=== PATIENT | female | born 1935 | race Caucasian/White ===

== ENCOUNTER 2017-12-02 06:43 | Inpatient (IN) | payer MEDICARE, OTHER, SELFPAY ==
[2017-11-18 12:49] VITALS: BMI 34.9
[2017-12-02] VITALS (15 sets, daily range): BP systolic 93–170; BP diastolic 45–87; PULSE 63–98; RESP 10–21; TEMP 35.9–36.6; O2SAT 95–99; BMI 33.9
--- NOTE | 2017-12-02 | DI.RAD.S_ITS ---
PROCEDURE: XR PELVIS 1-2V INDICATIONS: POST OPERATIVE TOTAL RIGHT HIP TECHNIQUE: 1 view of the lower pelvis acquired. COMPARISON: [facility], CR, XR PELVIS WITH BILATERAL LATERAL HIPS, 07/23/2017, 10:35. FINDINGS: Interval postsurgical changes of the right hip are compatible with a right hip arthroplasty. The metallic prosthetic components appear to be appropriately seated. Expected postoperative changes within the overlying soft tissues are present. No displaced fractures or dislocations are evident. Postoperative changes related to a left hip arthroplasty are noted. There are moderate degenerative changes present involving the pubis symphysis. There is a soft tissue air and edema are seen overlying the right hip. No radiopaque foreign bodies are evident. A Guerrero catheter is incidentally noted. IMPRESSION: Expected postoperative changes related to a recent right hip arthroplasty. Dictated by: Saul Dodd M.D. on 12/02/2017 at 9:02 Approved by: Saul Dodd M.D. on 12/02/2017 at 9:03
[2017-12-02] MEDS: LACTATED RINGERS 1,000 ML 42 ML IV (07:25)
[2017-12-02] MEDS: ACETAMINOPHEN 325 MG TABLET 975 MG PO (07:25)
[2017-12-02] MEDS: CELECOXIB 200 MG CAPSULE PO (07:26)
--- NOTE | 2017-12-02 07:51 | PM.PREOP ---
Pre-operative Note Interval Note Pre-op Check: History & Physical Reviewed by Physician and Changes
[2017-12-02] MEDS: CEFAZOLIN 2 GM/100 ML FROZ.PIGGY IV ×2 (07:52→16:49)
[2017-12-02] MEDS: TRANEXAMIC ACID 1,000 MG VIAL 1000 MG IV ×2 (08:25→08:58)
--- NOTE | 2017-12-02 08:36 | SUR.OPER ---
Left Lateral on padded OR bed. Gel axillary roll. Arms secured on padded armboard with pillow supporting top arm. Padded hip positioner braces x4 - anterior and posterior chest and pelvis. Additional gel pad used anterior pelvis. Gel pad under bottom leg from knee to foot and secured with tape over sheet.
[2017-12-02] MEDS: BUPIVACAINE LIPOSOME 266 MG/20 ML VIAL INJ (08:55)
--- NOTE | 2017-12-02 09:35 | PM.OP.1 ---
Operative Date/Time/Diagnoses - Date of procedure: 12/02/17 Time of procedure: 09:36 Pre-op diagnosis: Right hip degenerative joint disease Post-op diagnosis: same Procedure & Clinicians Procedure: Right total hip arthroplasty (CPT code 76228 with administrative assistant receptionist) Same procedure as scheduled: Yes Indications: Patient is an 82-year-old female with severe right hip DJD. The patient has pain with activities and at rest, limited ambulation and activity tolerance, difficulties with ADLs, and failure of conservative treatment. We have discussed the nature of condition, treatment options, risks and benefits, and patient elects to proceed with total hip arthroplasty and gives informed consent. Surgeon: Abner Caicedo Online Community Manager: Trino Loo Anesthesia Type: General and Spinal Operative Notes Closure Type: primary Specimen(s): none sent Implants & Drains: Acetabulum: Pérez and Nephew R3 acetabular component size 50 mm Femoral component: Pérez and Nephew Synergy stem size 13 with standard offset Femoral head: 32 mm + 0 cobalt chrome Applied: catheter Estimated Blood Loss (mL): 100 Blood products transfused: none Procedure in detail: After satisfaction induction of anesthetic, and administration of IV antibiotics, the patient was positioned in the lateral decubitus position with all bony prominences well padded and pelvic position secured using a hip superintendent sanitation positioning device. Right hip and lower extremity prepped and draped in the usual sterile fashion, 1st dose of intravenous tranexamic acid was administered, then a longitudinal incision was created centered over the greater trochanter and carried sharply through the skin and subcutaneous tissues down to the fascia roxanna which was divided longitudinally and retracted with a Charnley retractor. External rotators visualize, cut, tagged, and retracted posteriorly, then the capsule was cut in a T-type fashion with the corners tagged and retracted. Hip was dislocated and femoral neck cut made according to preoperative templating. Acetabular retractors then placed, and the acetabular labrum and osteophytes were excised. The acetabulum was then sequentially reamed to 49 mm with an excellent circumferential ream and fit with the trial. The trial component was removed and a permanent size 50 mm Pérez and Nephew R3 acetabular component was selected, positioned, and impacted with satisfactory position and fixation achieved. Permanent liner was then inserted with the elevated lip directed posteriorly. Soft tissue then removed off the lateral femoral neck in the lateral neck was entered using a box osteotome. T-handled reamers placed down the canal followed by sequential broaching to 13 with the final broach left in place for trial reduction which demonstrated excellent leg length, range of motion, and stability characteristics with a 32 mm +0 trial ball. The trial and broach were removed, and a permanent size 13 Pérez and Nephew Synergy stem was selected and inserted with excellent position and fixation achieved. Another trial reduction yielded the above characteristics so the trial ball was exchanged for a permanent 32 mm +0 cobalt chrome ball. The hip was irrigated and reduced and excellent leg length range of motion and stability characteristics were achieved and maintained. Periarticular tissues were infiltrated with Exparel. The hip was copiously irrigated, and the capsule repaired with #2 Ethibond, and the piriformis was repaired back to the greater trochanter with the same. Fascia roxanna closed with interrupted #1 Ethibond sutures, and the subcutaneous tissues were closed in 2 layers of 0 Vicryl and 2 0 Vicryl. Skin was closed with [place] and sterile dressings applied. Second dose of tranexamic acid was administered intravenously, and the anesthetic was terminated. Complications: none Condition: stable Disposition: PACU Plan for aftercare: Patient will be admitted to the acute care [facility], and anticipate discharge on postop day 1-2 with follow-up in office in 10-14 days. Outpatient physical therapy will be arranged and patient will continue to observe posterior hip precautions. Patient will continue use of postoperative Lovenox for 10 days postop.
[2017-12-02] MEDS: fentaNYL 100 MCG/2 ML INJ 50 MCG IV ×2 (09:55→10:00)
[2017-12-02] MEDS: HYDROCODONE/ACET 5/325 TABLET 1 TAB PO ×2 (11:23→15:20)
[2017-12-02] MEDS: LACTATED RINGERS 1,000 ML 100 ML IV ×2 (11:24→21:19)
[2017-12-02] MEDS: ONDANSETRON 4 MG/2 ML INJ IV (12:15)
[2017-12-02] MEDS: hydrOXYzine pamoate 25 MG CAPSULE PO (12:21)
--- NOTE | 2017-12-02 15:00 | PT.IIE ---
Current Diagnoses Unilateral primary osteoarthritis, right hip (12/02/17) Surgery Performed Operation Date: 12/02/17 07:45 Actual Procedures p Total Hip Arthroplasty(Right) - Abner Caicedo MD Surgical History (Last Reviewed 12/02/17 @ 09:02 by Danielle Narayan, ALON) History of arthroplasty of left hip (Acute) History of delivery (Acute) History of phacoemulsification of cataract of right eye with intraocular lens implantation (Acute) Hx of tonsillectomy (Acute) Hx of vein stripping (Acute) Medical History (Last Updated 11/18/17 @ 13:14 by Marina Colon RN) Arthritis (Acute) Chronic low back pain (Acute) Frequent diarrhea (Acute) H/O: hysterectomy (Acute) HTN (hypertension) (Acute) Heartburn (Acute) Hyperlipidemia (Acute) Hypothyroidism (Acute) Macular degeneration of left eye (Acute) Osteoarthritis (Acute) Physical Therapy Inpatient Evaluation/Re-Eval Medical Review Prior Functional Status Medical History Reviewed Yes Diet/Fluid Consistency Regular Communication no known deficits Mobility and Gait ind without AD Activities of Daily Living and IADL's likes to stay home most of the time, does go to [employer] 2x/wk, limits outings due to incontinence. When pt does go out she doesn't eat or drink anything until she's home. Prior Functional Level (Other details) denies falls Social History Household Members none Living Arrangements House Number of Floors (Floors) One Floor Number of Stairs To Enter/Railing? 0STE Home Environment Standard Height Toilet Tub/Shower Home Equipment Front Wheel Walker Straight Cane Junior Paralegal Grab Bars In Shower Physical Therapy Current Condition Current Condition Evaluation Date 12/02/17 Treatment Diagnosis R post EL Onset Date 12/02/17 Precautions Posterior Hip Precautions No Hip Flexion > 90 degrees No Hip Internal Rotation No Hip Adduction Weight Bearing Status Weight Bearing Status Weight Bear as Tolerated Subjective Physical Therapy Visit Type Type Initial Evaluation Visit Start Time 13:01 Visit Stop Time 14:24 Total Visit Minutes 83 Physical Therapy Visit Comments Patient Comments Pt reports doing well, getting cramping in the R calf when at rest but more so with movement. Patient/Caregiver Goals go home, pt adamant that she doens't want to go to rehab. Therapy Pain Assessment Pain When Pain Assessed During Mobility Pain Present Pain Present Pain Reported Location Right Hip Intensity 6 Scale Used Numeric (1 - 10) Description Aching Cramping Tender Throbbing With Movement Pain Behaviors Facial Grimacing Guarding Wincing Pain Management Techniques Apply Cold Modification of Treatment Re-positioning Timing of Activity with Medications PT-Bed Mobility Assessment Supine to Sit Supine to Sit Moderate Assistance 1 Person Assistance Head of Bed Elevated Scooting Scooting to Edge of Bed Moderate Assistance Scooting Up and Down in Bed Dependent PT-Transfer Assessment Sit to and From Stand Sit to and from Stand Contact Guard Assistance 1 Person Assistance Use of Upper Extremities Equipment Transfer Assistive Device Gait Belt Front Wheeled Walker Transfers Transfer Destination Chair Transfer Technique Stand Step Pivot Transfer Ability Level of Assist Contact Guard Assistance 1 Person Assistance Use of Upper Extremities Comments Mobility Comments Pt w/ short stature and needing to slide really close to the edge of the bed to get toes to touch the floor. Pt needed help at both hips to get all the way there and cues to avoid leaning too far forward. Gait Assessment Gait Gait Assistance Required: Contact Guard Assist 1 Person Assist Distance (Feet) (feet) 10 Able to Maintain Weight Bearing Status Yes During Gait Assistive Devices Assistive Device Gait Belt Front Wheeled Walker Gait Deviations General Gait Pattern Antalgic Decreased Stride Length Step-to Gait Factors Limiting Gait Function Factors Limiting Gait Function Decreased Activity Tolerance Decreased Strength Pain Comments Gait Comments Pt seems to have genu valgus which she reports never noticing before. R foot somewhat pigeon-toed inward, but the R hip/knee seem in neutral rotational alignment. Stair Climbing Assessment Comments Stair Climbing Comments not tested yet PT-Balance Assessment Sitting Balance and Reactions Static Sitting Balance Ability Good Dynamic Sitting Balance Ability Fair Standing Balance and Reactions Static Standing Balance Ability Good Dynamic Standing Balance Ability Fair Device Used FWW Orientation Orientation/Cognition Level of Alertness Alert Orientation Name Age Birthday Month Date Year Day of Week Place Situation Language Function Ability No Deficits Noted Safety Awareness Understands Safety Issues Memory Description No Deficits Noted Gross Range of Motion Upper Extremity ROM Assessment Within Functional Limits Lower Extremity ROM Assessment Within Functional Limits Impairments as allowed by hip precautions Strength Upper Extremity Strength Assessment Within Functional Limits Comments Strength Comments not formally tested but RLE functional strength is such that pt can stand up and walk. Coordination Assessment Gross Coordination Gross Coordination WNL Physical Therapy Treatment Exercises Exercises Ankle Pumps Gluteal Sets Quad Sets Heel Slides Supine Hip Abduction Education Education Provided Precautions Weight Bearing Status Post-Op Packet Safety PT Summary Assessment and Plan Potential Rehabilitation Potential Excellent Status of Condition at Evaluation Stable Summary Impairments Pain Strength Bed Mobility Transfers Gait Activity Tolerance Progress Towards Goals Progressing Toward Goals Assessment Summary POD#0 R post EL. Pt has full voluntary control of the RLE and is able to complete post- op exercises with minimal assist. Pt did get cramping in the R calf when trying to perform quad sets. Pt currently requiring min<>mod A for functional mobility which is below pt's reported functional baseline. Pt does have potential for further functional improvement and will benefit from ongoing skilled acute PT to optimize independence with mobility. It 's anticipated that pt will be safe to discharge directly home with 24/7 assist from her daughter. Goals Bed Mobility Goal Standby Assistance Transfer Goal Standby Assistance Front Wheeled Walker Gait Goal Standby Assistance Front Wheel Walker Gait Distance 50 Days to Meet Goals 3 Frequency of Treatment Frequency Of Treatment Twice a Day Treatment Plan Physical Therapy Treatment Plan Bed Mobility Training Transfer Training Gait Training Therapeutic Exercise Balance Retraining Post Op Education Discharge Planning Other Recommendations and Next Treatment set up family training closer Focus to dc, progress gait and bed mobility Recommendations To Nursing Amount of Assist Needed 1 Person Assist Discharge Recommendations PT Discharge Recommendations Home with 24/7 Assist Home Health
[2017-12-02] MEDS: diphenhydrAMINE 25 MG TABLET 50 MG PO (21:18)
[2017-12-02] MEDS: DOCUSATE 100 MG CAPSULE PO (21:19)
[2017-12-02] MEDS: IBUPROFEN 400 MG TABLET PO (21:19)
[2017-12-03] VITALS (7 sets, daily range): BP systolic 106–132; BP diastolic 48–64; PULSE 60–78; RESP 16–18; TEMP 36.4–36.8; O2SAT 93–98
--- NOTE | 2017-12-03 | DI.RAD.S_ITS ---
PROCEDURE: XR HIP W PEL IF DONE RT 2V INDICATIONS: Internal rotation of right leg with complaints of leg pain TECHNIQUE: AP pelvis and lateral view of the right hip acquired. COMPARISON: [facility], , XR PELVIS 1-2V, 12/02/2017, 9:38. FINDINGS: Postoperative changes are again evident related to a right hip arthroplasty. The metallic prosthetic components appear to be properly seated with a periprostatic fracture. However, the entire femoral stem is not included on the frog-leg view. Expected postoperative changes within the soft tissues overlying the right gluteal/oximal thigh region are evident with areas of soft tissue air and edema. No radiopaque foreign bodies are evident. Postoperative changes are again noted related to a left hip arthroplasty. There are moderate to severe degenerative changes present involving the lumbosacral spine. IMPRESSION: Expected postoperative changes related to a right hip arthroplasty. Dictated by: Saul Dodd M.D. on 12/03/2017 at 14:57 Approved by: Saul Dodd M.D. on 12/03/2017 at 15:00
[2017-12-03] MEDS: CEFAZOLIN 2 GM/100 ML FROZ.PIGGY IV (00:33)
[2017-12-03] MEDS: HYDROCODONE/ACET 5/325 TABLET 1 TAB PO ×3 (00:36→10:45)
[2017-12-03 05:57] LABS: Hematocrit 32.3 % (36-46)
[2017-12-03] MEDS: LEVOTHYROXINE 50 MCG TABLET PO (06:10)
[2017-12-03] MEDS: AMLODIPINE 5 MG TABLET PO (10:44)
[2017-12-03] MEDS: DOCUSATE 100 MG CAPSULE PO ×2 (10:44→21:21)
[2017-12-03] MEDS: hydrOXYzine pamoate 25 MG CAPSULE PO (10:44)
[2017-12-03] MEDS: ENOXAPARIN 40 MG/0.4 ML SYRINGE SUBCUT (10:45)
[2017-12-03] MEDS: OXYBUTYNIN 5 MG TABLET PO (10:45)
--- NOTE | 2017-12-03 11:42 | CM.DANOTE ---
DCP: Case received, EMR reviewed and met with patient and family members, daughter. Introduced self and role. DCP template completed with info currently available. Pt is an 82 year old female who admitted yesterday am to care of the hospitalist team. PCP: Dr. Caitlyn Herrera. Payer: confirmed: Medicare/[facility]. Patient's admitting diagnosis: right total hip arthroplasty. Patient has gone through this process before with left hip. Patient is planning to go home after hospital stay. Will continue to work with physical therapy. P: check in tomorrow morning with the oncoming hospitalist team to discuss progress, and follow to assist with discharge needs that may arise. lakeisha Cochran, ALON/correctional case manager
[2017-12-03] MEDS: OXYCODONE/ACETAMINOPHEN 5/325 TABLET 1 TAB PO (14:56)
--- NOTE | 2017-12-03 15:17 | PC.NURSE ---
day shift pt states pain in right hip. medicated with 1 norco. pt states that did not help her pain so on next medication, switched pt to percocet. awaiting reassessment. appears that right knee is internally rotated in bed and while standing. PT aware and checking hip as well. Notified PA who will assess pt. alford in place. ice applied to hip to help with pain control as well. hourly rounding provided, call light within reach.
--- NOTE | 2017-12-03 15:38 | PT.IPTN ---
Current Diagnoses Unilateral primary osteoarthritis, right hip (12/02/17) Surgery Performed Operation Date: 12/02/17 07:45 Actual Procedures p Total Hip Arthroplasty(Right) - Abner Caicedo MD Physical Therapy Treatment Note Subjective Physical Therapy Visit Type Type Patient Refusal Notes Pt visiting with family and about to have lunch with them, would like to wait about an hour and half for PT session.
--- NOTE | 2017-12-03 15:49 | PM.PNPO.1 ---
Subjective Date Patient Seen: 12/03/17 Time Patient Seen: 13:49 Interval history: POD #1 status post right total hip arthroplasty with Dr. Caicedo. Her pain is well controlled. She has been up ambulating with physical therapy she has noticed that her knee and foot internally rotate. This was not happening prior to surgery. She has no knee pain. No falls. She has a Guerrero catheter in place. Exam Vital Signs (past 8 hours): - 12/03/17 08:48 12/03/17 11:24 Temperature 98 F 98.2 F Pulse Rate 60 77 Respiratory Rate 18 16 Blood Pressure 106/48 L 120/64 Pulse Oximetry 93 98 Oxygen Delivery Method Room Air Oxygen Flow Rate 0 Narrative Exam Narrative: Patient is sitting in bedside chair in no acute distress. No instability of right knee with varus and valgus stress. Negative anterior-posterior drawer. Nontender to palpation throughout. Full quad strength. Full active range of motion of knee. Right hip has some mild internal rotation. Her knees are valgus bilaterally. No signs of hip dislocation or concerns on exam. Objective Labs Result Diagrams: 12/03/17 05:15 Labs: Laboratory Results - last 24 hr 12/03/17 05:15 Hgb 11.0 L Hct 32.3 L Hip x-rays: AP pelvis and right hip demonstrate hardware in proper alignment. No signs of dislocation or fracture. Assessment & Plan Post-op (1) S/P total hip arthroplasty: Current Visit: Yes Status: Acute Postoperative Procedures Operation Date: 12/02/17 07:45 Actual Procedures Side Surgeon p Total Hip Arthroplasty Right Abner Caicedo MD POD #1 status post right total hip arthroplasty with Dr. Caicedo. Patient's hip x-rays look very good. No signs of dislocation or issues. It is normal after surgery to have some internal rotation with changes of the muscles postoperatively. She should continue mobilizing with physical therapy. Continue current pain medication. SAMIA Guerrero now that she is more mobile. Discharge plan home in next 1-2 days. Time Spent With Patient less than 15 minutes Quality VTE Deep Vein Thrombosis/Pulmonary Embolism Present on Admission: No
--- NOTE | 2017-12-03 15:49 | PT.IPTN ---
Current Diagnoses Unilateral primary osteoarthritis, right hip (12/02/17) Surgery Performed Operation Date: 12/02/17 07:45 Actual Procedures p Total Hip Arthroplasty(Right) - Abner Caicedo MD Physical Therapy Treatment Note Physical Therapy Current Condition Current Condition Evaluation Date 12/02/17 Treatment Diagnosis R post EL Onset Date 12/02/17 Precautions Posterior Hip Precautions No Hip Flexion > 90 degrees No Hip Internal Rotation No Hip Adduction Weight Bearing Status Weight Bearing Status Weight Bear as Tolerated Subjective Physical Therapy Visit Type Type Treatment Note Visit Start Time 13:30 Visit Stop Time 14:30 Total Visit Minutes 60 Physical Therapy Visit Comments Patient Comments Pt reports doing well, very agreeable to participate in therapy at this time. Therapy Pain Assessment Pain When Pain Assessed During Mobility Pain Present Pain Present Pain Reported Location Right Hip Intensity 6 Scale Used Numeric (1 - 10) Description Aching Cramping Tender Throbbing With Movement Pain Behaviors Facial Grimacing Guarding Wincing Pain Management Techniques Apply Cold Modification of Treatment Re-positioning Timing of Activity with Medications PT-Bed Mobility Assessment Supine to Sit Supine to Sit Moderate Assistance 1 Person Assistance Head of Bed Elevated Scooting Scooting to Edge of Bed Moderate Assistance PT-Transfer Assessment Sit to and From Stand Sit to and from Stand Contact Guard Assistance 1 Person Assistance Use of Upper Extremities Equipment Transfer Assistive Device Gait Belt Front Wheeled Walker Transfers Transfer Destination Chair Transfer Technique Stand Step Pivot Transfer Ability Level of Assist Contact Guard Assistance 1 Person Assistance Use of Upper Extremities Comments Mobility Comments Pt able to move the RLE easier in bed for bed mobility, but still needing assist getting all the way to the edge of the bed by helping scoot each hip forward several times. Gait Assessment Gait Gait Assistance Required: Standby Assistance Contact Guard Assist Distance (Feet) (feet) 75 Able to Maintain Weight Bearing Status Yes During Gait Assistive Devices Assistive Device Gait Belt Front Wheeled Walker Gait Deviations General Gait Pattern Antalgic Decreased Stride Length Step-to Gait Factors Limiting Gait Function Factors Limiting Gait Function Decreased Activity Tolerance Decreased Strength Pain Comments Gait Comments Pt definitely seems to have more internal rotation in the R hip this session in bed and in standing. Pt remain stable while walking with not abnormal pain. Orientation Orientation/Cognition Level of Alertness Alert Orientation Name Age Birthday Month Date Year Day of Week Place Situation Language Function Ability No Deficits Noted Safety Awareness Understands Safety Issues Memory Description No Deficits Noted Gross Range of Motion Upper Extremity ROM Assessment Within Functional Limits Lower Extremity ROM Assessment Within Functional Limits Impairments as allowed by hip precautions Strength Upper Extremity Strength Assessment Within Functional Limits Comments Strength Comments not formally tested but RLE functional strength is such that pt can stand up and walk. Coordination Assessment Gross Coordination Gross Coordination WNL Physical Therapy Treatment Exercises Exercises Ankle Pumps Gluteal Sets Quad Sets Heel Slides Supine Hip Abduction Education Education Provided Precautions Weight Bearing Status Post-Op Packet Safety PT Summary Assessment and Plan Potential Rehabilitation Potential Excellent Status of Condition at Evaluation Evolving Summary Impairments Pain Strength Bed Mobility Transfers Gait Activity Tolerance Progress Towards Goals Progressing Toward Goals Assessment Summary Pt's R hip seems to have more internal rotation today. Pt found in bed in IR, this television script writer only able to passively bring the hip to neutral (no ER). There was no increase in pain with this. Pt reports that her leg has been this way even before the surgery. Pt able to walk further this session, but the leg remains internally rotated. It was recommended to the RN that the patient not walk again until ortho PA or MD have assessed her again. RN agrees. PA has since seen the pt and is ordering an xray. Goals Bed Mobility Goal Standby Assistance Transfer Goal Standby Assistance Front Wheeled Walker Gait Goal Standby Assistance Front Wheel Walker Gait Distance 50 Days to Meet Goals 3 Frequency of Treatment Frequency Of Treatment Twice a Day Treatment Plan Physical Therapy Treatment Plan Bed Mobility Training Transfer Training Gait Training Therapeutic Exercise Balance Retraining Post Op Education Discharge Planning Other Recommendations and Next Treatment set up family training closer Focus to dc, progress gait and bed mobility Recommendations To Nursing Amount of Assist Needed 1 Person Assist Discharge Recommendations PT Discharge Recommendations Home with / Assist Home Health
--- NOTE | 2017-12-03 15:54 | P.PN_ITS ---
Subjective Date Patient Seen: 12/03/17 Time Patient Seen: 13:49 Interval history: POD #1 status post right total hip arthroplasty with Dr. Caicedo. Her pain is well controlled. She has been up ambulating with physical therapy she has noticed that her knee and foot internally rotate. This was not happening prior to surgery. She has no knee pain. No falls. She has a Guerrero catheter in place. Exam Vital Signs (past 8 hours): - 12/03/17 08:48 12/03/17 11:24 Temperature 98 F 98.2 F Pulse Rate 60 77 Respiratory Rate 18 16 Blood Pressure 106/48 L 120/64 Pulse Oximetry 93 98 Oxygen Delivery Method Room Air Oxygen Flow Rate 0 Narrative Exam Narrative: Patient is sitting in bedside chair in no acute distress. No instability of right knee with varus and valgus stress. Negative anterior- posterior drawer. Nontender to palpation throughout. Full quad strength. Full active range of motion of knee. Right hip has some mild internal rotation. Her knees are valgus bilaterally. No signs of hip dislocation or concerns on exam. Objective Labs Result Diagrams: 12/03/17 05:15 Labs: Laboratory Results - last 24 hr 12/03/17 05:15 Hgb 11.0 L Hct 32.3 L Hip x-rays: AP pelvis and right hip demonstrate hardware in proper alignment. No signs of dislocation or fracture. Assessment & Plan Post-op (1) S/P total hip arthroplasty: Current Visit: Yes Status: Acute Postoperative Procedures Operation Date: 12/02/17 07:45 Actual Procedures Side Surgeon p Total Hip Arthroplasty Right Abner Caicedo MD POD #1 status post right total hip arthroplasty with Dr. Caicedo. Patient's hip x -rays look very good. No signs of dislocation or issues. It is normal after surgery to have some internal rotation with changes of the muscles postoperatively. She should continue mobilizing with physical therapy. Continue current pain medication. SAMIA Guerrero now that she is more mobile. Discharge plan home in next 1-2 days. Time Spent With Patient less than 15 minutes Quality VTE Deep Vein Thrombosis/Pulmonary Embolism Present on Admission: No
--- NOTE | 2017-12-03 19:02 | PC.NURSE ---
Addendum entered by Savannah Hansen R.N. 12/03/17 22:15: Pt ambulated in hallway w/assist. Denies discomfort. Dsg CDI on surgical right hip. Call light w/in reach, bed alarm on for pt safety. Continue w/plan of care. Original Note: Pt had x-ray done to assess right knee. Denies any discomfort at this time. Ambulated in hallway with staff and family. HL RFA intact/patent. Guerrero cath patent clear yellow urine. Call light w/in reach.
[2017-12-03] MEDS: diphenhydrAMINE 25 MG TABLET 50 MG PO (21:20)
[2017-12-03] MEDS: IBUPROFEN 400 MG TABLET PO (21:21)
[2017-12-04] MEDS: LEVOTHYROXINE 50 MCG TABLET PO (05:59)
[2017-12-04] MEDS: OXYCODONE/ACETAMINOPHEN 5/325 TABLET 1 TAB PO ×3 (06:02→14:57)
[2017-12-04] MEDS: hydrOXYzine pamoate 25 MG CAPSULE PO (06:02)
[2017-12-04 06:20] VITALS: BP 146/64; PULSE 79; RESP 16; TEMP 36.7; O2SAT 99
[2017-12-04 08:00] VITALS: BP 113/61; PULSE 66; RESP 16; TEMP 36.6; O2SAT 96
[2017-12-04] MEDS: OXYBUTYNIN 5 MG TABLET PO (09:05)
[2017-12-04] MEDS: DOCUSATE 100 MG CAPSULE PO ×2 (09:05→20:10)
[2017-12-04] MEDS: ENOXAPARIN 40 MG/0.4 ML SYRINGE SUBCUT (09:05)
[2017-12-04] MEDS: AMLODIPINE 5 MG TABLET PO (09:05)
--- NOTE | 2017-12-04 09:19 | PM.DS.1 ---
History of Present Illness Date Patient Seen: 12/04/17 Time Patient Seen: 09:19 Chief complaint: [place] [id number] Narrative: Patient's pain is [id number]. Denies fever or chills. No nausea vomiting. Patient has been able to use the restroom. She is ambulating short distances out in the rod[place]. Patient's daughter is home to sister. Patient would like to be discharged home today. Discharge Providers Date of admission: 12/02/17 06:43 Primary care physician: ZARA Srinivasan Consults: 12/02/17 10:46 Consult to Discharge Planning Routine Comment: Consult to Physical Therapy Evaluate & Treat Comment: Physician Instructions: post op EL protocol Discharge provider: Trino Loo PA-C Summary Discharge Diagnosis: Status post right total hip arthroplasty Hospital Course: Patient is an 82-year-old female with severe right hip DJD. The patient has pain with activities and at rest, limited ambulation and activity tolerance, difficulties with ADLs, and failure of conservative treatment. We have discussed the nature of condition, treatment options, risks and benefits, and patient elects to proceed with total hip arthroplasty and gives informed consent. Surgeon: Abner Caicedo Applications Administrator: Trino Loo Anesthesia Type: General and Spinal Patient underwent right total hip arthroplasty. Patient back in her room recovering well and is in stable condition. Status at Discharge Functional status at discharge: uses cane/walker Overall status at discharge: patient is progressing back to baseline Time Spent with Patient Less than 30 minutes Exam Vital Signs (past 8 hours): - 12/04/17 06:20 Temperature 98.0 F Pulse Rate 79 Respiratory Rate 16 Blood Pressure 146/64 H Pulse Oximetry 99 Oxygen Delivery Method Room Air Oxygen Flow Rate 0 Narrative Exam Narrative: Patient resting comfortably in bed in no apparent distress. Right hip dressing is clean, dry and intact. Motor functions intact distal right lower extremity. Sensation grossly intact to light touch right lower extremity. Objective Labs Result Diagrams: 12/03/17 05:15 Discharge Plan Discharge Plan Patient Disposition: Home, Self-Care Discharge comment: DC home today Discharge Med Rec/Prescriptions Prescriptions: New enoxaparin [Lovenox] 40 mg/0.4 mL Syringe 40 mg Sub-Q DAILY 7 Days Qty: 0.4 RF: 0 Continue ibuprofen-diphenhydramine cit [Advil PM] 200-38 mg Tablet 2 cap PO BEDTIME Qty: 0 RF: 0 amlodipine 5 mg Tablet 5 mg PO DAILY RF: 0 levothyroxine 50 mcg Capsule 50 mcg PO DAILY RF: 0 oxybutynin chloride 5 mg Tablet 5 mg PO QAM RF: 0 Follow up/Referrals: Caitlyn Way ARNP [Primary Care Provider] - Abner Caicedo MD [Physician] - (Follow up 5-7 days) Provider Discharge Instructions Diet: Diet as Tolerated Activity: Weightbearing as tolerated. Posterior hip precautions Cold/Heat Therapy: Apply ice as needed Other treatments: Patient has prescription for oxycodone at home to be taken as directed. Patient will also take her Advil as directed. Wound Care Report to your healthcare provider any signs of infection, such as:: chills, fever, increased pain and unusual drainage Dressing: Keep dressing clean and dry Discharge Data Primary Care Provider: Caitlyn Way Attending Provider: Abner Caicedo Admit Date/Time: 12/02/17 06:43 Quality VTE Deep Vein Thrombosis/Pulmonary Embolism Present on Admission: No
--- NOTE | 2017-12-04 09:30 | PT.IPTN ---
Current Diagnoses Unilateral primary osteoarthritis, right hip (12/02/17) Presence of unspecified artificial hip joint (12/02/17) Surgery Performed Operation Date: 12/02/17 07:45 Actual Procedures p Total Hip Arthroplasty(Right) - Abner Caicedo MD Physical Therapy Treatment Note M2 PT-IP Current Condition Start: 12/02/17 12:46 Freq: NEEDED Status: Active Protocol: Document 12/02/17 14:24 RS (Rec: 12/02/17 15:00 RS [id number]) Physical Therapy Current Condition Current Condition Evaluation Date 12/02/17 Treatment Diagnosis R post EL Onset Date 12/02/17 Precautions Posterior Hip Precautions No Hip Flexion > 90 degrees No Hip Internal Rotation No Hip Adduction Weight Bearing Status Weight Bearing Status Weight Bear as Tolerated M3 PT-IP Subjective Start: 12/02/17 12:46 Freq: NEEDED Status: Active Protocol: Document 12/04/17 09:30 GGD (Rec: 12/04/17 12:10 GGD [id number]) Subjective Physical Therapy Visit Type Type Treatment Note Visit Start Time 09:30 Visit Stop Time 10:05 Total Visit Minutes 35 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 Therapy Pain Assessment Pain When Pain Assessed During Mobility Pain Present Pain Present Pain Reported Location Right Hip Intensity 5 M4 PT-IP Mobility and Gait Start: 12/02/17 12:46 Freq: NEEDED Status: Active Protocol: Document 12/04/17 09:30 GGD (Rec: 12/04/17 12:10 GGD [id number]) PT-Bed Mobility Assessment Supine to Sit Supine to Sit Contact Guard Assistance Minimal Assistance Scooting Scooting to Edge of Bed Contact Guard Assistance PT-Transfer Assessment Sit to and From Stand Sit to and from Stand Contact Guard Assistance Use of Upper Extremities Equipment Transfer Assistive Device Gait Belt Front Wheeled Walker Comments Mobility Comments Pt need mod cues for mobility for hip precautions. She need assistance with LE to move pillows. Gait Assessment Gait Gait Assistance Required: Contact Guard Assist Distance (Feet) (feet) 130 Assistive Devices Assistive Device Gait Belt Front Wheeled Walker Gait Deviations General Gait Pattern Antalgic Decreased Stride Length Step-to Gait Factors Limiting Gait Function Factors Limiting Gait Function Decreased Activity Tolerance Decreased Strength Pain M5 PT-IP Objective Assessments Start: 12/02/17 12:46 Freq: NEEDED Status: Active Protocol: Document 12/02/17 14:24 RS (Rec: 12/02/17 15:00 RS [id number]) Orientation Orientation/Cognition Level of Alertness Alert Orientation Name Age Birthday Month Date Year Day of Week Place Situation Language Function Ability No Deficits Noted Safety Awareness Understands Safety Issues Memory Description No Deficits Noted Gross Range of Motion Upper Extremity ROM Assessment Within Functional Limits Lower Extremity ROM Assessment Within Functional Limits Impairments as allowed by hip precautions Strength Upper Extremity Strength Assessment Within Functional Limits Comments Strength Comments not formally tested but RLE functional strength is such that pt can stand up and walk. Coordination Assessment Gross Coordination Gross Coordination WNL M6 PT-IP Treatment Start: 12/02/17 12:46 Freq: NEEDED Status: Active Protocol: Document 12/04/17 09:30 GGD (Rec: 12/04/17 12:10 GGD [id number]) Physical Therapy Treatment Exercises Exercises Ankle Pumps Gluteal Sets Quad Sets Heel Slides Supine Hip Abduction Education Education Provided Precautions Safety M7 PT-IP Assessment and Plan Start: 12/02/17 12:46 Freq: NEEDED Status: Active Protocol: Document 12/04/17 09:30 GGD (Rec: 12/04/17 12:10 GGD [id number]) PT Summary Assessment and Plan Summary Assessment Summary Pt need cues for safe mobility with cues for hip precautions . She will be at home alone, with daughter able to help at times. Daughter lives 2 mins away. She improving, but still needs assist and cues for safety. Frequency of Treatment Frequency Of Treatment Twice a Day Treatment Plan Other Recommendations and Next Treatment progress gait and bed mobility Focus Discharge Recommendations PT Discharge Recommendations Home with Assistance Outpatient PT
--- NOTE | 2017-12-04 10:21 | CM.DPC ---
DCP: continued: case received, EMR reviewed. Discussed case in interdisc team rounds: outcome: obtain OT order (done). Stopped in to see pt after noting a d/c to home order. Pt is found up in chair, daughter at bedside. Both confirm the plan for home at d/c but state that neither feel she is ready to d/c today (post op day 2 for EL). Daughter reports a man came in very early before I was here and told my mother she had to go home today. She requested another day of treatment as she did not yet feel prepared for home by herself but noted that he disagreed. ALON Jasso is updated and will follow accordingly. P: home when stable for same, family support and orthopedic followup. OT will see pt today.
[2017-12-04 12:00] VITALS: BP 121/88; PULSE 78; RESP 16; TEMP 36.6; O2SAT 95
--- NOTE | 2017-12-04 13:15 | PT.IPTN ---
Current Diagnoses Unilateral primary osteoarthritis, right hip (12/02/17) Presence of unspecified artificial hip joint (12/02/17) Surgery Performed Operation Date: 12/02/17 07:45 Actual Procedures p Total Hip Arthroplasty(Right) - Abner Caicedo MD Physical Therapy Treatment Note M2 PT-IP Current Condition Start: 12/02/17 12:46 Freq: NEEDED Status: Active Protocol: Document 12/02/17 14:24 RS (Rec: 12/02/17 15:00 RS [id number]) Physical Therapy Current Condition Current Condition Evaluation Date 12/02/17 Treatment Diagnosis R post EL Onset Date 12/02/17 Precautions Posterior Hip Precautions No Hip Flexion > 90 degrees No Hip Internal Rotation No Hip Adduction Weight Bearing Status Weight Bearing Status Weight Bear as Tolerated M3 PT-IP Subjective Start: 12/02/17 12:46 Freq: NEEDED Status: Active Protocol: Document 12/04/17 13:15 GGD (Rec: 12/04/17 15:36 GGD [id number]) Subjective Physical Therapy Visit Type Type Treatment Note Visit Start Time 13:15 Visit Stop Time 13:45 Total Visit Minutes 30 Number of GOLF COURSE LABORER Visits 2 Physical Therapy Visit Comments Patient Comments Pt state she want's to walk. Therapy Pain Assessment Pain When Pain Assessed During Mobility Pain Present Pain Present Pain Reported M4 PT-IP Mobility and Gait Start: 12/02/17 12:46 Freq: NEEDED Status: Active Protocol: Document 12/04/17 13:15 GGD (Rec: 12/04/17 15:36 GGD [id number]) PT-Bed Mobility Assessment Supine to Sit Supine to Sit Contact Guard Assistance Minimal Assistance Sit to Supine Sit to Supine Contact Guard Assistance Minimal Assistance Scooting Scooting to Edge of Bed Contact Guard Assistance PT-Transfer Assessment Sit to and From Stand Sit to and from Stand Contact Guard Assistance Use of Upper Extremities Equipment Transfer Assistive Device Gait Belt Front Wheeled Walker Transfers Transfer Destination Bed Comments Mobility Comments Pt need cues and assist for bed mobility and hip precautions. Gait Assessment Gait Gait Assistance Required: Contact Guard Assist Distance (Feet) (feet) 130 Assistive Devices Assistive Device Gait Belt Front Wheeled Walker Gait Deviations General Gait Pattern Antalgic Decreased Stride Length Step-to Gait Factors Limiting Gait Function Factors Limiting Gait Function Decreased Activity Tolerance Decreased Strength Pain M5 PT-IP Objective Assessments Start: 12/02/17 12:46 Freq: NEEDED Status: Active Protocol: Document 12/02/17 14:24 RS (Rec: 12/02/17 15:00 RS [id number]) Orientation Orientation/Cognition Level of Alertness Alert Orientation Name Age Birthday Month Date Year Day of Week Place Situation Language Function Ability No Deficits Noted Safety Awareness Understands Safety Issues Memory Description No Deficits Noted Gross Range of Motion Upper Extremity ROM Assessment Within Functional Limits Lower Extremity ROM Assessment Within Functional Limits Impairments as allowed by hip precautions Strength Upper Extremity Strength Assessment Within Functional Limits Comments Strength Comments not formally tested but RLE functional strength is such that pt can stand up and walk. Coordination Assessment Gross Coordination Gross Coordination WNL M6 PT-IP Treatment Start: 12/02/17 12:46 Freq: NEEDED Status: Active Protocol: Document 12/04/17 13:15 GGD (Rec: 12/04/17 15:36 GGD [id number]) Physical Therapy Treatment Exercises Exercises Ankle Pumps Gluteal Sets Quad Sets Supine Hip Abduction Education Education Provided Precautions M7 PT-IP Assessment and Plan Start: 12/02/17 12:46 Freq: NEEDED Status: Active Protocol: Document 12/04/17 13:15 GGD (Rec: 12/04/17 15:36 GGD [id number]) PT Summary Assessment and Plan Summary Assessment Summary Pt needs assist and cues for safe bed mobility with hip precautions. She had good tolerance and pain control with gait. Frequency of Treatment Frequency Of Treatment Twice a Day Treatment Plan Other Recommendations and Next Treatment progress gait and bed mobility Focus Recommendations To Nursing Amount of Assist Needed 1 Person Assist Discharge Recommendations PT Discharge Recommendations Home with Assistance Outpatient PT
[2017-12-04 15:49] VITALS: BP 117/50; PULSE 73; RESP 16; TEMP 36.6; O2SAT 94
--- NOTE | 2017-12-04 15:55 | PC.NURSE ---
1400 patient states she does not feel urge to urinate yet. She has not drank very much water today, water refilled and encouraged to increase fluids. Bladder scan shows 210cc at this point. Brief in place for history of incontinence. continue to monitor for void.
--- NOTE | 2017-12-04 17:49 | OT.IP.EVAL ---
Current Diagnoses Unilateral primary osteoarthritis, right hip (12/02/17) Presence of unspecified artificial hip joint (12/02/17) Surgery Performed Operation Date: 12/02/17 07:45 Actual Procedures p Total Hip Arthroplasty(Right) - Abner Caicedo MD Past Medical History (Last Updated 11/18/17 @ 13:14 by Marina Colon RN) Arthritis (Acute) Chronic low back pain (Acute) Frequent diarrhea (Acute) H/O: hysterectomy (Acute) HTN (hypertension) (Acute) Heartburn (Acute) Hyperlipidemia (Acute) Hypothyroidism (Acute) Macular degeneration of left eye (Acute) Osteoarthritis (Acute) Surgical History (Last Reviewed 12/02/17 @ 09:02 by Danielle Narayan RN) History of arthroplasty of left hip (Acute) History of delivery (Acute) History of phacoemulsification of cataract of right eye with intraocular lens implantation (Acute) Hx of tonsillectomy (Acute) Hx of vein stripping (Acute) Occupational Therapy Inpatient Evaluation/Re-Eval M1 PT/OT-IP Prior Functional Status Start: 12/02/17 12:46 Freq: NEEDED Status: Active Protocol: Document 12/02/17 14:24 RS (Rec: 12/02/17 15:00 RS [id number]) Medical Review Prior Functional Status Medical History Reviewed Yes Diet/Fluid Consistency Regular Communication no known deficits Mobility and Gait ind without AD Activities of Daily Living and IADL's likes to stay home most of the time, does go to [employer] and [employer] 2x/wk, limits outings due to incontinence. When pt does go out she doesn't eat or drink anything until she's home. Prior Functional Level (Other details) denies falls Social History Household Members none Living Arrangements House Number of Floors (Floors) One Floor Number of Stairs To Enter/Railing? 0STE Home Environment Standard Height Toilet Tub/Shower Home Equipment Front Wheel Walker Straight Cane Packaging Mechanic Grab Bars In Shower M1 PT/OT-IP Prior Functional Status Start: 12/04/17 17:28 Freq: NEEDED Status: Active Protocol: Document 12/04/17 13:55 CCC (Rec: 12/04/17 17:49 CCC [id number]) Medical Review Prior Functional Status Medical History Reviewed Yes Diet/Fluid Consistency Regular Communication no known deficits Mobility and Gait ind without AD Activities of Daily Living and IADL's likes to stay home most of the time, does go to [employer] and [employer] 2x/wk, limits outings due to incontinence. When pt does go out she doesn't eat or drink anything until she's home. Prior Functional Level (Other details) denies falls Social History Household Members none Living Arrangements House Number of Floors (Floors) One Floor Number of Stairs To Enter/Railing? 0STE Home Environment Standard Height Toilet Tub/Shower Home Equipment Front Wheel Walker Straight Cane Packaging Mechanic Grab Bars In Shower Employment Status Retired M2 OT-IP Current Condition Start: 12/04/17 17:28 Freq: Status: Active Protocol: Document 12/04/17 13:55 [facility] (Rec: 12/04/17 17:49 [facility] [id number]) Occupational Therapy Current Condition Current Condition Evaluation Date 12/04/17 Treatment Diagnosis Right HIP Osteoarthritis Post Operative Precautions Posterior Hip Precautions No Hip Flexion > 90 degrees No Hip Internal Rotation No Hip Adduction Weight Bearing Status Weight Bearing Status Weight Bear as Tolerated M3 OT- IP Subjective and Pain Start: 12/04/17 17:28 Freq: Status: Active Protocol: Document 12/04/17 13:55 [facility] (Rec: 12/04/17 17:49 [facility] [id number]) OT- Subjective Occupational Therapy Visit Type Type Initial Evaluation Visit Start Time 13:55 Visit Stop Time 14:50 Total Visit Minutes 55 Occupational Therapy Visit Comments Patient Comments Pt agreaable to OT eval. Patient/Caregiver Goals Pt wanting to go home and but not feeling ready to go today. M4 OT- IP ADL's Start: 12/04/17 17:28 Freq: Status: Active Protocol: Document 12/04/17 13:55 [facility] (Rec: 12/04/17 17:49 [facility] [id number]) OT ADL-Grooming Comments OT Grooming Comments Pt states already did grooming in AM. OT ADL-Dressing General Eval Upper Body Dressing Ability Independent Lower Body Dressing Ability Maximum Assistance Areas Needing Assistance Underpants/Brief Socks Assistive Devices Dressing Assistive Devices Long Handled Shoe Horn Packaging Mechanic Sock Aid Comments OT Dressing Comments Pt MAX A for LB dressing at this time without use of AED. Pt has LB AED at home from prior L EL 3 years ago per pt . OT ADL-Toileting General Evaluation Toileting Ability Standby Assistance Comments OT Toileting Comments Pt educated to stand for pericare needs. OT ADL-Bathing Comments OT Bathing Comments Pt states to shower tomorrow. M6 OT- IP Functional Cognition Start: 12/04/17 17:28 Freq: Status: Active Protocol: Document 12/04/17 13:55 [facility] (Rec: 12/04/17 17:49 [facility] [id number]) Cognitive Factors Limiting Selfcare Function Cognitive Ability Level of Alertness Alert Patient Orientation Name Year Day of Week Place Situation Attention Span Ability Capable of Focused Attention Capable of Sustained Attention Ability to Follow Commands Able to Follow One Step Commands Memory Description Immediate Intact Short Term Impaired Safety Awareness Decreased Recall of Precautions Decreased Ability to Apply Precautions Underestimates Need for Assistance Problem Solving Ability Needs Assist to Identify Solutions Cognitive Comments Cognitive Assessment Comments Pt needing vc to remember all hip precautions and vc not to bend too far forwards during bed mobility while scooting forwards in the bed. M7 OT- IP Mobility and Balance Start: 12/04/17 17:28 Freq: Status: Active Protocol: Document 12/04/17 13:55 [facility] (Rec: 12/04/17 17:49 [facility] [id number]) OT- Bed Mobility Assessment Rolling Type of Rolling Bilateral Level of Assistance Standby Assistance Bedrails Supine to Sit Supine to Sit Assist Standby Assistance Minimal Assistance Moderate Assistance Bedrails Sit to Supine Sit to Supine Assist Standby Assistance Bedrails Scooting Scooting to Edge of Bed Contact Guard Assistance Minimal Assistance Scooting Up and Down in Bed Minimal Assistance OT-Transfer Assessment Sit to and From Stand Sit to and from Stand Contact Guard Assistance Transfers Transfer Ability Contact Guard Assistance Technique Transfer Destination Bed Chair Transfer Technique Stand Step Pivot Devices Transfer Assistive Devices Gait Belt Front Wheeled Walker Comments Mobility Comments Pt having increased difficulty to get out of right side of the bed as use to the left side at home, MODA for right side and LAVERNE for left side , but with use of leg private sector executive increased time and supervision for safety to get out of the bed. Pt needs reminders to place hands behind her to scoot forwards otherwise has the tendency to lean too far forwards. Pt's daughter present for Ot eval. Pt also needing vc to push up from the bed versus pull on the walker. Pt has ordered bed rail. Pt may benefit from BSC next to the bed to help with bed mobility and frequency of pt going to the bathroom at night. OT- Balance Assessment Sitting Balance and Reactions Static Sitting Balance Ability Good Dynamic Sitting Balance Ability Good Standing Balance and Reactions Static Standing Balance Ability Fair M8 OT- IP Objective Assessments Start: 12/04/17 17:28 Freq: Status: Active Protocol: Document 12/04/17 13:55 [facility] (Rec: 12/04/17 17:49 [facility] [id number]) OT Gross Range of Motion Upper Extremity Range of Motion Assessment Within Functional Limits OT Strength Comments Strength Comments WFL for ADL needs. OT-Muscle Tone Assessment Muscle Tone WNL Yes M9 OT- IP Assessment and Plan Start: 12/04/17 17:28 Freq: Status: Active Protocol: Document 12/04/17 13:55 [facility] (Rec: 12/04/17 17:49 [facility] [id number]) OT Summary Assessment and Plan Potential Rehabilitation Potential Good Analytic Complexity at Evaluation Low Summary OT Impairments Pain Balance Functional Cognition Functional Mobility Dressing Toileting Bathing Toilet Transfers Shower Transfers Progress Towards Goals Slow Progress due to Pain Slow Progress due to Activity Tolerance Slow Progress due to Cognition Assessment Summary Pt main barrier is bed mobility and having difficulty to lift RLE. Pt still needing reminders for hip precautions , safety awareness, and would benefit from more education and also for pt's daughter to initially stay with her upon discharge. Pt adamantly refuses skilled rehab. Goals Grooming Goal Standby Assistance Dressing Goal Standby Assistance Toileting Goal Standby Assistance Bathing Goal Minimal Assistance Toilet Transfer Goal Standby Assistance Shower Transfer Goal Standby Assistance Patient/Caregiver Education Goal Demonstrate Post-Op Precautions Caregiver Independent Assisting Patient Days to Meet Goals 2 Frequency of Treatment Frequency Of Treatment Once a Day Treatment Plan OT Treatment Plan ADL Training Functional Cognition Training Functional Mobility Patient/Family Education Discharge Planning Other Treatment Recommendations and Next AED for LB dressing, family Treatment Focus training, showering if appropriate. Discharge Recommendations OT Discharge Recommendations Home with Assistance Home Health Outpatient PT Other Discharge Recommendations Home with assist and HH versus Outpt PT. Home Equipment Needs BSC, bed rail
[2017-12-04] MEDS: IBUPROFEN 400 MG TABLET PO (20:10)
[2017-12-04] MEDS: diphenhydrAMINE 25 MG TABLET 50 MG PO (20:10)
[2017-12-04] MEDS: HYDROCODONE/ACET 5/325 TABLET 1 TAB PO (20:10)
[2017-12-04 20:37] VITALS: BP 135/82; PULSE 76; RESP 16; TEMP 36.7; O2SAT 95
[2017-12-05 01:46] VITALS: BP 138/56; PULSE 70; RESP 16; TEMP 36.7; O2SAT 97
[2017-12-05] MEDS: HYDROCODONE/ACET 5/325 TABLET 1 TAB PO ×2 (04:47→08:36)
[2017-12-05 06:54] VITALS: BP 127/57; PULSE 64; RESP 16; TEMP 36.6; O2SAT 96
[2017-12-05] MEDS: LEVOTHYROXINE 50 MCG TABLET PO (07:40)
[2017-12-05] MEDS: DOCUSATE 100 MG CAPSULE PO (07:40)
[2017-12-05 08:05] VITALS: BP 134/58; PULSE 60; RESP 18; TEMP 36.2; O2SAT 96
[2017-12-05] MEDS: AMLODIPINE 5 MG TABLET PO (08:36)
[2017-12-05] MEDS: ENOXAPARIN 40 MG/0.4 ML SYRINGE SUBCUT (08:37)
--- NOTE | 2017-12-05 09:20 | PT.IPTN ---
Current Diagnoses Unilateral primary osteoarthritis, right hip (12/02/17) Presence of unspecified artificial hip joint (12/02/17) Surgery Performed Operation Date: 12/02/17 07:45 Actual Procedures p Total Hip Arthroplasty(Right) - Abner Caicedo MD Physical Therapy Treatment Note M2 PT-IP Current Condition Start: 12/02/17 12:46 Freq: NEEDED Status: Active Protocol: Document 12/02/17 14:24 RS (Rec: 12/02/17 15:00 RS [id number]) Physical Therapy Current Condition Current Condition Evaluation Date 12/02/17 Treatment Diagnosis R post EL Onset Date 12/02/17 Precautions Posterior Hip Precautions No Hip Flexion > 90 degrees No Hip Internal Rotation No Hip Adduction Weight Bearing Status Weight Bearing Status Weight Bear as Tolerated M3 PT-IP Subjective Start: 12/02/17 12:46 Freq: NEEDED Status: Active Protocol: Document 12/05/17 09:20 GGD (Rec: 12/05/17 10:28 GGD [id number]) Subjective Physical Therapy Visit Type Type Treatment Note Visit Start Time 08:55 Visit Stop Time 09:20 Total Visit Minutes 25 Number of HAND LOOM WEAVER Visits 3 Physical Therapy Visit Comments Patient Comments Pt state she had a good night. Therapy Pain Assessment Pain When Pain Assessed During Mobility Pain Present Pain Present Pain Reported Location Right Hip Intensity 4 Scale Used Numeric (1 - 10) Pain Behaviors Guarding M4 PT-IP Mobility and Gait Start: 12/02/17 12:46 Freq: NEEDED Status: Active Protocol: Document 12/05/17 09:20 GGD (Rec: 12/05/17 10:28 GGD [id number]) PT-Bed Mobility Assessment Supine to Sit Supine to Sit Contact Guard Assistance Scooting Scooting to Edge of Bed Contact Guard Assistance PT-Transfer Assessment Sit to and From Stand Sit to and from Stand Contact Guard Assistance Use of Upper Extremities Equipment Transfer Assistive Device Gait Belt Front Wheeled Walker Transfers Transfer Destination Chair Comments Mobility Comments Pt need cues and assist for bed mobility and hip precautions. Gait Assessment Gait Gait Assistance Required: Contact Guard Assist Distance (Feet) (feet) 150 Assistive Devices Assistive Device Gait Belt Front Wheeled Walker Gait Deviations General Gait Pattern Antalgic Decreased Stride Length Step-to Gait Factors Limiting Gait Function Factors Limiting Gait Function Decreased Activity Tolerance Decreased Strength Pain M5 PT-IP Objective Assessments Start: 12/02/17 12:46 Freq: NEEDED Status: Active Protocol: Document 12/02/17 14:24 RS (Rec: 12/02/17 15:00 RS [id number]) Orientation Orientation/Cognition Level of Alertness Alert Orientation Name Age Birthday Month Date Year Day of Week Place Situation Language Function Ability No Deficits Noted Safety Awareness Understands Safety Issues Memory Description No Deficits Noted Gross Range of Motion Upper Extremity ROM Assessment Within Functional Limits Lower Extremity ROM Assessment Within Functional Limits Impairments as allowed by hip precautions Strength Upper Extremity Strength Assessment Within Functional Limits Comments Strength Comments not formally tested but RLE functional strength is such that pt can stand up and walk. Coordination Assessment Gross Coordination Gross Coordination WNL M6 PT-IP Treatment Start: 12/02/17 12:46 Freq: NEEDED Status: Active Protocol: Document 12/05/17 09:20 GGD (Rec: 12/05/17 10:28 GGD [id number]) Physical Therapy Treatment Exercises Exercises Ankle Pumps Gluteal Sets Quad Sets Heel Slides Supine Hip Abduction Short Arc Quads Education Education Provided Precautions M7 PT-IP Assessment and Plan Start: 12/02/17 12:46 Freq: NEEDED Status: Active Protocol: Document 12/05/17 09:20 GGD (Rec: 12/05/17 10:28 GGD [id number]) PT Summary Assessment and Plan Summary Assessment Summary Pt needed cues for hip IR with bed mobility. She need extra time for bed mobility. She improving with gait tolerance. Frequency of Treatment Frequency Of Treatment Twice a Day Treatment Plan Other Recommendations and Next Treatment progress gait and bed mobility Focus Recommendations To Nursing Amount of Assist Needed 1 Person Assist Discharge Recommendations PT Discharge Recommendations Home with Assistance Outpatient PT
--- NOTE | 2017-12-05 11:25 | OT.IP.TRT ---
Current Diagnoses Unilateral primary osteoarthritis, right hip (12/02/17) Presence of unspecified artificial hip joint (12/02/17) Surgery Performed Operation Date: 12/02/17 07:45 Actual Procedures p Total Hip Arthroplasty(Right) - Abner Caicedo MD Occupational Therapy Treatment Note M2 OT-IP Current Condition Start: 12/04/17 17:28 Freq: Status: Active Protocol: Document 12/04/17 13:55 [facility] (Rec: 12/04/17 17:49 [facility] [id number]) Occupational Therapy Current Condition Current Condition Evaluation Date 12/04/17 Treatment Diagnosis Right HIP Osteoarthritis Post Operative Precautions Posterior Hip Precautions No Hip Flexion > 90 degrees No Hip Internal Rotation No Hip Adduction Weight Bearing Status Weight Bearing Status Weight Bear as Tolerated M3 OT- IP Subjective and Pain Start: 12/04/17 17:28 Freq: Status: Active Protocol: Document 12/05/17 11:16 [facility] (Rec: 12/05/17 11:21 [facility] [id number]) OT- Subjective Occupational Therapy Visit Type Type Treatment Note Visit Start Time 09:25 Visit Stop Time 09:45 Total Visit Minutes 20 Occupational Therapy Visit Comments Patient/Caregiver Goals Pt not wanting shower and wanting to do so at home. OT Pain Assessment Pain When Pain Assessed At Rest Pain Present Pain Present Denied Pain M4 OT- IP ADL's Start: 12/04/17 17:28 Freq: Status: Active Protocol: Document 12/05/17 11:16 [facility] (Rec: 12/05/17 11:21 [facility] [id number]) OT ADL-Dressing General Eval Upper Body Dressing Ability Standby Assistance Lower Body Dressing Ability Contact Guard Assistance Comments OT Dressing Comments CGA while pulling up pants for balance. VC to akash right leg first.
== END 2017-12-05 10:29 | disposition home or self-care (01) | DRG 470 ==
PROVIDERS: Admitting Provider Orthopaedic Surgery; Family Provider Nurse Practitioner Family; PCP Nurse Practitioner Family; Referring Provider Physician Assistant Medical; Visit Provider Orthopaedic Surgery
PROC: 0SR90JZ Replacement of Right Hip Joint with Synthetic Substitute, Open Approach (ICD-10-PCS; CPT 27130; principal; 2017-12-02 07:45)
DX: M16.11 Unilateral primary osteoarthritis, right hip (principal); Z96.642 Presence of left artificial hip joint; I10 Essential (primary) hypertension; E78.5 Hyperlipidemia, unspecified; E03.9 Hypothyroidism, unspecified
CPT/HCPCS: 36415; 36592; 72170; 73502; 85014; 85018; 94760; 97110; 97116; 97161; 97165; 97530; 97535; C1776; C9290; J0690; J1100; J1650; J2250; J2405; J2704; J3010

== ENCOUNTER → 2020-08-19 15:07 | Outpatient (CLI) | payer MEDICARE, SELFPAY ==
[2017-12-02 12:00] VITALS: BMI 33.9
--- NOTE | 2020-08-19 15:14 | DI.ECHO.S_ITS ---
[place] [facility]---------+ [facility] +---------+ : : [address] : : : : [id number] : : : : Phone: [phone]+ Echocardiogram Report + + :Name: ELMA PUGA Study Date: 08/19/2020 Height: 62 in : [id number] ReadingLocation: Weight: 179 lb : : Gender: Female BSA: 1.8 m2 : :: 1935 Age: 84 yrs BP: 163/103 mmHg: :Reason For Study: Murmur : :Ordering Physician: JEAN CARLOS, : :ALFREDA Performed By: Caroline Samaniego : :Referring: ALFREDA EVANGELISTA : + + Interpretation Summary Left ventricular systolic function appears normal with an estimated ejection fraction of 65 to 70% without any focal wall motion abnormality. There is borderline concentric LVH with normal left ventricular size. Diastolic function is challenging to assess because of contradictory data but there is some evidence for mildly increased filling pressures. The right ventricle appears normal. Right ventricular systolic pressure cannot be estimated but CVP is likely around 3 mmHg. There is severe left atrial enlargement. There is mild mitral regurgitation. There is mild aortic stenosis with a peak velocity of 2.3 m/s and a mean gradient of 11 mmHg. There is no other significant valvular abnormality. Procedure: A two-dimensional transthoracic echocardiogram with color flow and Doppler was performed. The study quality was technically adequate. There is no prior echocardiogram noted for this patient. The patient was in normal sinus rhythm during the exam. Left Ventricle: The left ventricle is normal in size. There is borderline concentric left ventricular hypertrophy. Left ventricular systolic function appears normal without focal wall motion abnormalities. The ejection fraction is estimated to be 65-70%. Diastolic function could not be accurately assessed due to contradictory data. Right Ventricle: The right ventricle is normal in size and function. Atria: The left atrium is severely dilated. Right atrial size is normal. There is no Doppler evidence for an interatrial shunt. Mitral Valve: There is mild mitral annular calcification. The mitral valve leaflets appear mildly thickened, but open well. The mitral valve leaflets are slightly calcified. There is mild mitral regurgitation. Aortic Valve: The aortic valve is trileaflet. The aortic valve is mildly calcified. There is mildly reduced leaflet mobility. There is mild aortic stenosis. The peak aortic velocity is 2.3 m/sec. The aortic valve mean gradient is 11 mmHg. No aortic regurgitation is present. Tricuspid Valve: The tricuspid valve is normal in structure and function. There is a trace or physiologic amount of tricuspid regurgitation. Pulmonary artery pressures cannot be estimated because of the lack of a measurable TR jet velocity but the IVC suggests a CVP of around 3 mmHg. Pulmonic Valve: The pulmonic valve is not well seen, but is grossly normal. There is a trace or physiologic amount of pulmonic regurgitation. Great Vessels: The aortic root is normal size. The ascending aorta is normal in size. The pulmonary artery is not well visualized, but is probably normal size. The IVC is of normal diameter and collapses greater than 50% with a sniff. This suggests a low right atrial pressure of 3 mm Hg. Pericardium/ Pleura There is an anterior echo-free space consistent with a fat pad. There is no pericardial effusion. MMode/2D Measurements & Calculations LVIDd: 4.3 cm LVOT diam: 2.0 cm LVIDs: 2.7 cm Ao root diam: 3.1 cm FS: 37.0 % asc Aorta Diam: 3.2 cm IVSd: 1.1 cm Ao Arch Diam (distal): 2.4 cm LVPWd: 0.97 cm LV traore. diameter/BSA (cm/m^2): 2.3 LV sys. diameter/BSA (cm/m^2): 1.5 LA A2 area: 23.3 cm2 RA long axis: 4.8 cm LA A4 area: 28.4 cm2 RA area: 14.3 cm2 LA length (vol): 5.7 cm RA vol: 36.3 ml LA vol: 98.9 ml RA : 19.9 ml/m2 LA vol index: 54.3 ml/m2 IVC diam: 0.98 cm RVD1 (basal): 3.1 cm TAPSE: 1.8 cm Doppler Measurements & Calculations Ao V2 max: 231.8 cm/sec LVOT Max Manjit: 101.3 cm/sec Ao V2 mean: 157.0 cm/sec LV V1 max P.1 mmHg Ao max P.5 mmHg LV V1 VTI: 19.3 cm Ao mean P.2 mmHg JACK(I,D): 1.4 cm2 Ao V2 VTI: 44.4 cm JACK(V,D): 1.4 cm2 sev ratio: 0.43 JACK indexed to BSA (cm^2/m^2): 0.75 MV E max manjit: 88.0 cm/sec PA V2 max: 67.9 cm/sec MV A max manjit: 104.8 cm/sec PA V2 mean: 45.0 cm/sec MV E/A: 0.84 PA mean P.91 mmHg Med Peak E' Manjit: 47.4 cm/sec PA Accel Time: 0.08 sec E/E' med: 1.9 Lat Peak E' Manjit: 4.0 cm/sec E/E' lat: 22.0 E/e' average: 11.9 MV dec time: 0.22 sec SV(LVOT): 60.7 ml Reading Physician:05:03 PM
--- NOTE | 2020-08-19 15:14 | DI.RAD.S_ITS ---
PROCEDURE: XR DEXA AXIAL SKELETON INDICATIONS: Asymptomatic menopausal state Cardiac murmur COMPARISON: None. FINDINGS: This blank DEXA report has been sent in error by the PACS system. The correct and complete report will be forthcoming in 1-2 days. Thank you for your patience and understanding. Dictated by: Kia Soriano MD, PhD on 08/19/2020 at 17:24 Approved by: Kia Soriano MD, PhD on 08/19/2020 at 17:24
== END ==
PROVIDERS: Family Provider Nurse Practitioner Family; PCP Internal Medicine; Referring Provider Internal Medicine; Visit Provider Internal Medicine
DX: R01.1 Cardiac murmur, unspecified (principal); Z78.0 Asymptomatic menopausal state; E55.9 Vitamin D deficiency, unspecified
CPT/HCPCS: 77080; 93306

== ENCOUNTER → 2022-03-29 12:19 | Outpatient (CLI) | payer MEDICARE, SELFPAY ==
[2017-12-02 12:00] VITALS: BMI 33.9
--- NOTE | 2022-03-29 12:26 | DI.ECHO.S_ITS ---
[facility] +---------+ [facility] +---------+ : : [address] : : : : [id number] : : : : Phone: [phone]---------+ Echocardiogram Report + + :Name: ELMA PUGA Study Date: 03/29/2022 Height: 62 in : :[facility] ReadingLocation: Weight: 180 lb : : Gender: Female BSA: 1.8 m2 : :: 1935 Age: 86 yrs BP: 128/59 mmHg: :Reason For Study: CARDIOMEGALY : :Ordering Physician: JEAN CARLOS, : :ALFREDA Performed By: Ashley Sharif : :Referring: ALFREDA EVANGELISTA : + + Interpretation Summary The patient was in atrial fibrillation with heart rates between 73-90 bpm during the exam. The ejection fraction is estimated to be 60-65%. Left ventricular wall thickness is mildly increased. Grade II diastolic dysfunction The right ventricle is normal in size and function. The IVC is of normal diameter and collapses greater than 50% with a sniff. This suggests a low right atrial pressure of 3 mm Hg. Moderate Aortic Stenosis, progressed from mild when compared to the last study from 2020. Procedure: A two-dimensional transthoracic echocardiogram with color flow and Doppler was performed. The study quality was technically adequate. Comparison is made with the echocardiogram of 08/19/2020. The patient was in atrial fibrillation with heart rates between 73-90 bpm during the exam. Left Ventricle: The left ventricle is normal in size. Left ventricular wall thickness is mildly increased. RWT 0.55, Concentric Remodeling. The ejection fraction is estimated to be 60-65%. Grade II diastolic dysfunction. Right Ventricle: The right ventricle is normal in size and function. Atria: The left atrium is mildly dilated. Right atrial size is normal. There is no Doppler evidence for an interatrial shunt. Mitral Valve: The mitral valve leaflets are mildly calcified. There is mild mitral annular calcification. There is mild mitral regurgitation. Aortic Valve: The aortic valve is trileaflet. The aortic valve is mildly calcified. The peak aortic velocity is 3.13 m/sec. The aortic valve mean gradient is 22 mmHg. The calculated aortic valve area is 1.3 cm2. Moderate Aortic Stenosis. No aortic regurgitation is present. Tricuspid Valve: The tricuspid valve is normal in structure and function. There is trace tricuspid regurgitation. Pulmonic Valve: The pulmonic valve is not well visualized. There is no pulmonic valvular regurgitation. Great Vessels: The aortic root is normal size. The dimensions of the ascending aorta are normal. The IVC is of normal diameter and collapses greater than 50% with a sniff. This suggests a low right atrial pressure of 3 mm Hg. Pericardium/ Pleura There is no pericardial effusion. There is no pleural effusion. MMode/2D Measurements & Calculations LVIDd: 4.3 cm LVOT diam: 2.2 cm LVIDs: 2.7 cm Ao root diam: 3.0 cm FS: 36.4 % asc Aorta Diam: 3.2 cm EPSS: 1.1 cm Ao Arch Diam (Prox Trans): 2.2 cm IVSd: 0.96 cm LVPWd: 1.2 cm LV traore. diameter/BSA (cm/m^2): 2.3 LV sys. diameter/BSA (cm/m^2): 1.5 LA A2 area: 25.0 cm2 RA long axis: 5.0 cm LA A4 area: 19.0 cm2 RA area: 11.6 cm2 LA length (vol): 5.6 cm RA vol: 22.8 ml LA vol: 72.0 ml RA : 12.5 ml/m2 LA vol index: 39.4 ml/m2 IVC diam: 1.3 cm RVD1 (basal): 2.8 cm RVD2 (mid): 2.1 cm TAPSE: 1.7 cm Doppler Measurements & Calculations Ao V2 max: 313.2 cm/sec LVOT Max Manjit: 105.0 cm/sec Ao V2 mean: 210.1 cm/sec LV V1 max P.4 mmHg Ao max P.2 mmHg LV V1 VTI: 21.3 cm Ao mean P.9 mmHg JACK(I,D): 1.4 cm2 Ao V2 VTI: 59.6 cm JACK(V,D): 1.3 cm2 sev ratio: 0.36 JACK indexed to BSA (cm^2/m^2): 0.76 MV E max manjit: 91.9 cm/sec PA V2 max: 72.1 cm/sec MV A max manjit: 102.2 cm/sec PA V2 mean: 51.6 cm/sec MV E/A: 0.90 PA mean P.2 mmHg Med Peak E' Manjit: 5.6 cm/sec PA pr(Accel): 39.6 mmHg E/E' med: 16.3 Lat Peak E' Manjit: 5.4 cm/sec E/E' lat: 16.9 E/e' average: 16.6 MV dec time: 0.28 sec MVA(VTI): 2.4 cm2 MV V2 mean: 73.2 cm/sec SV(LVOT): 82.6 ml MV mean P.4 mmHg MV V2 VTI: 34.0 cm Reading Physician:[id number]
== END ==
PROVIDERS: Family Provider Nurse Practitioner Family; PCP Internal Medicine; Referring Provider Internal Medicine; Visit Provider Internal Medicine
DX: I08.0 Rheumatic disorders of both mitral and aortic valves; I49.9 Cardiac arrhythmia, unspecified; R01.1 Cardiac murmur, unspecified
CPT/HCPCS: 93306

== ENCOUNTER → 2022-07-11 13:01 | Outpatient (CLI) | payer MEDICARE, SELFPAY ==
[2017-12-02 12:00] VITALS: BMI 33.9
--- NOTE | 2022-07-11 13:07 | DI.RAD.S_ITS ---
PROCEDURE: XR WRIST LT MIN 3V INDICATIONS: Pain in left arm TECHNIQUE: Four views of the wrist were acquired. COMPARISON: None. FINDINGS: Bones: No fractures or dislocations. No suspicious bony lesions. Scaphoid view: Unremarkable. Soft tissues: No suspicious soft tissue calcifications. IMPRESSION: No acute bony abnormality. Dictated by: Bakari Jasmine M.D. on 07/11/2022 at 14:37 Approved by: Bakari Jasmine M.D. on 07/11/2022 at 14:41
--- NOTE | 2022-07-11 13:07 | DI.RAD.S_ITS ---
PROCEDURE: XR ELBOW LT MIN 3V INDICATIONS: Pain in left arm TECHNIQUE: 3 views of the elbow were acquired. COMPARISON: None. FINDINGS: Bones: No fractures or dislocations. No suspicious bony lesions. Soft tissues: Moderate elbow joint effusion. IMPRESSION: Moderate elbow joint effusion, without discernible fracture. If there remains a high clinical concern for fracture, consider CT. Dictated by: Bakari Jasmine M.D. on 07/11/2022 at 14:41 Approved by: Bakari Jasmine M.D. on 07/11/2022 at 14:42
--- NOTE | 2022-07-11 13:07 | DI.RAD.S_ITS ---
PROCEDURE: XR FOREARM LT 2V INDICATIONS: Pain in left arm TECHNIQUE: 2 views of the forearm were acquired. COMPARISON: None. FINDINGS: Bones: No fractures or dislocations. No suspicious bony lesions. Soft tissues: No suspicious soft tissue calcifications or masses. IMPRESSION: No acute bony abnormality. Dictated by: Bakari Jasmine M.D. on 07/11/2022 at 14:42 Approved by: Bakari Jasmine M.D. on 07/11/2022 at 14:43
== END ==
PROVIDERS: Family Provider Nurse Practitioner Family; PCP Internal Medicine; Referring Provider Internal Medicine; Visit Provider Internal Medicine
DX: M79.602 Pain in left arm (principal); M25.422 Effusion, left elbow
CPT/HCPCS: 73080; 73090; 73110

== ENCOUNTER → 2023-04-04 10:10 | Outpatient (CLI) | payer MEDICARE, SELFPAY ==
[2017-12-02 12:00] VITALS: BMI 33.9
--- NOTE | 2023-04-04 | DI.ECHO.S_ITS ---
[facility] +---------+ Hospital +---------+ : : [address] : [address] : : : : [id number] : : : : Phone: [phone]+ Echocardiogram Report + + :Name: ELMA PUGA Study Date: 04/04/2023 Height: 62 in : :[facility] ReadingLocation: Weight: 160 lb : : Gender: Female BSA: 1.7 m2 : :: 1935 Age: 87 yrs BP: 165/76 mmHg: :Reason For Study: Aortic Valve Stenosis : :Ordering Physician: GIFTY, : :ALLIE Performed By: Jana Castañeda : :Referring: ALLIE WILKINS : + + Interpretation Summary 1) Normal left ventricular thickness, size, wall motion, and systolic function (EF 60-65%). 2) Normal right ventricular size and function. 3) There is mild to moderate mitral regurgitation. 4) There is moderate aortic stenosis (valve area 1.0cm2, mean gradient 30mmHg, severity ratio 0.3). 5) Compared to the Echo done 03/29/2022, aortic stenosis has progressed but remains in moderate range. Procedure: A two-dimensional transthoracic echocardiogram with color flow and Doppler was performed. The study quality was technically adequate. Comparison is made with the echocardiogram of 03/29/2022. The patient was in atrial fibrillation with heart rates between 42-62 bpm during the exam. Left Ventricle: The left ventricle is normal in size and wall thickness. The ejection fraction is estimated to be 60-65%. Left ventricular systolic function appears normal without focal wall motion abnormalities. Diastolic parameters suggest a pseudonormalization pattern, consistent with probable elevated filling pressures. Right Ventricle: The right ventricle is normal in size and function. Atria: The left atrium is moderately dilated. Right atrial size is normal. There is no Doppler evidence for an interatrial shunt. Mitral Valve: The mitral valve leaflets are moderately calcified. There is moderate mitral annular calcification. There is no mitral valve stenosis. There is mild to moderate mitral regurgitation. Aortic Valve: The aortic valve is trileaflet. The aortic valve is mildly calcified. There is moderate aortic stenosis. The peak aortic velocity is 3.49 m/sec. The aortic valve mean gradient is 30 mmHg. There is trace aortic regurgitation. Tricuspid Valve: The tricuspid valve is normal. There is no tricuspid stenosis. There is trace tricuspid regurgitation. The right ventricular systolic pressure is estimated to be at least 39 mmHg based on an estimated right atrial pressure of 3 mm Hg. Pulmonic Valve: The pulmonic valve is not well visualized. There is no pulmonic valvular stenosis. There is trace pulmonic regurgitation. Great Vessels: The aortic root is normal size. The ascending aorta is normal in size. The pulmonary artery is normal size. The IVC is of normal diameter and collapses greater than 50% with a sniff. This suggests a low right atrial pressure of 3 mm Hg. Pericardium/ Pleura There is a trivial pericardial effusion noted. There is no pleural effusion. MMode/2D Measurements & Calculations LVIDd: 3.7 cm LVOT diam: 2.1 cm LVIDs: 2.8 cm Ao root diam: 2.6 cm FS: 24.3 % asc Aorta Diam: 3.2 cm EPSS: 0.90 cm IVSd: 1.1 cm LVPWd: 0.86 cm LV traore. diameter/BSA (cm/m^2): 2.1 LV sys. diameter/BSA (cm/m^2): 1.6 LA A2 area: 24.4 cm2 RA long axis: 6.0 cm LA A4 area: 22.2 cm2 RA area: 16.3 cm2 LA length (vol): 6.4 cm RA vol: 37.6 ml LA vol: 71.6 ml RA : 21.6 ml/m2 LA vol index: 41.2 ml/m2 IVC diam: 1.7 cm RVD1 (basal): 3.0 cm LVLs ap4: 5.1 cm LVLd ap2: 5.7 cm TAPSE_phl: 2.4 cm LVLs ap2: 5.3 cm Doppler Measurements & Calculations Ao V2 max: 345.0 cm/sec LVOT Max Manjit: 102.3 cm/sec Ao V2 mean: 253.6 cm/sec LV V1 max P.2 mmHg Ao max P.0 mmHg LV V1 VTI: 25.9 cm Ao mean P.6 mmHg JACK(I,D): 1.0 cm2 Ao V2 VTI: 85.4 cm JACK(V,D): 1.0 cm2 sev ratio: 0.30 JACK indexed to BSA (cm^2/m^2): 0.59 MV E max manjit: 152.0 cm/sec TR max manjit: 296.5 cm/sec MV A max manjit: 54.7 cm/sec TR max P.1 mmHg MV E/A: 2.8 PA V2 max: 82.8 cm/sec Med Peak E' Manjit: 4.3 cm/sec PA V2 mean: 59.4 cm/sec E/E' med: 35.7 PA mean P.0 mmHg Lat Peak E' Manjit: 11.8 cm/sec PA pr(Accel): 52.9 mmHg E/E' lat: 12.9 E/e' average: 24.3 MV dec time: 0.44 sec SV(LVOT): 87.5 ml AV VR_phl: 0.30 JACK(VTI)/BSA_phl: 0.55 Reading Physician:01:38 PM
== END ==
PROVIDERS: Family Provider Nurse Practitioner Family; PCP Internal Medicine; Referring Provider Internal Medicine Cardiovascular Disease; Visit Provider Internal Medicine Cardiovascular Disease
DX: I08.0 Rheumatic disorders of both mitral and aortic valves (principal)
CPT/HCPCS: 93306

== ENCOUNTER → 2023-10-25 13:06 | Outpatient (CLI) | payer MEDICARE, SELFPAY ==
[2017-12-02 12:00] VITALS: BMI 33.9
--- NOTE | 2023-10-25 13:13 | DI.RAD.S_ITS ---
PROCEDURE: XR LUMBAR SPINE MIN 4V INDICATIONS: BACK/KNEE PAIN TECHNIQUE: Five views of the lumbar spine COMPARISON: [facility], , L-SPINE 2-3 VIEWS, 08/21/2012, 8:54. FINDINGS: Bones: Moderate degenerative changes have progressed compared to 2013. There is disc space height loss. Trace anterolisthesis of L4 on L5. Osteophytes. Facet arthropathy. Vertebral body heights are well maintained. No traumatic subluxation. Oblique views are limited by overlapping bowel gas and osteophytes. No definite pars defects. Slight rightward spinal curvature. Hip arthroplasties peer Soft tissues: Scattered surgical clips. IMPRESSION: Moderate degenerative changes have progressed compared to 2013 as described above. If there is high concern for further derangement, consider MRI evaluation. Dictated by: Dean García M.D. on 10/25/2023 at 16:18 Approved by: Dean García M.D. on 10/25/2023 at 16:19
--- NOTE | 2023-10-25 13:13 | DI.RAD.S_ITS ---
PROCEDURE: XR KNEE LT 3V INDICATIONS: BACK/KNEE PAIN TECHNIQUE: 3 views of the knee were acquired. COMPARISON: None. FINDINGS: Bones: Mild degenerative changes with medial and patellofemoral joint space narrowing. No acute displaced fracture or dislocation. Soft tissues: No suspicious calcifications or significant joint effusion. Slight lateral patellar tilt. Patellar enthesopathy. IMPRESSION: Mild degenerative changes. Patellar enthesopathy. If there is high concern for further derangement, consider MRI evaluation. Dictated by: Dean García M.D. on 10/25/2023 at 16:17 Approved by: Dean García M.D. on 10/25/2023 at 16:18
== END ==
PROVIDERS: Family Provider Nurse Practitioner Family; PCP Internal Medicine; Referring Provider Internal Medicine; Visit Provider Internal Medicine
DX: M77.9 Enthesopathy, unspecified (principal); M47.816 Spondylosis without myelopathy or radiculopathy, lumbar region; M25.562 Pain in left knee; M54.50 Low back pain, unspecified; G89.29 Other chronic pain
CPT/HCPCS: 72110; 73562

== ENCOUNTER → 2024-06-19 14:43 | Outpatient (CLI) | payer MEDICARE, OTHER, SELFPAY ==
[2017-12-02 12:00] VITALS: BMI 33.9
--- NOTE | 2024-06-19 14:47 | DI.ECHO.S_ITS ---
[facility] +---------+ Hospital : : [address] : [address] : : [id number] : : Phone: [phone] Echocardiogram Report + + :Name: ELMA PUGA Study Date: 06/19/2024 Height: 62 in : :[facility] ReadingLocation: Weight: 180 lb : : Gender: Female BSA: 1.8 m2 : :: 1935 Age: 88 yrs BP: 143/92 mmHg: :Reason For Study: NONRHEUMATIC AORTIC VALVE STENOSIS : :Ordering Physician: GIFTY, : :ALLIE Performed By: Ziyad Garcias : :Referring: ALLIE WILKINS : + + Interpretation Summary 1) Normal left ventricular size, wall motion, and systolic function (EF 60- 65%). 2) Normal right ventricular size and function. 3) There is moderate to severe aortic stenosis (valve area 0.7cm2, mean gradient 33mmHg, severity ratio 0.24). 4) Compared to the Echo done 04/04/2023, aortic stenosis has progressed from moderate to moderate-severe on this study. Procedure: A two-dimensional transthoracic echocardiogram with color flow and Doppler was performed. The study quality was technically difficult. Comparison is made with the echocardiogram of 04/04/2023. The patient was in normal sinus rhythm during the exam. Left Ventricle: The left ventricle is normal in size. Left ventricular wall thickness is at the upper limits of normal. Proximal septal thickening is noted. There is no ventricular septal defect visualized. The ejection fraction is estimated to be 60-65%. There are no focal wall motion abnormalities. Diastolic parameters suggest probable normal left ventricular diastolic function and normal filling pressures. Right Ventricle: The right ventricle is normal in size and function. Atria: The left atrium is severely dilated. Right atrial size is normal. There is no Doppler evidence for an interatrial shunt. Mitral Valve: There is moderate to severe mitral annular calcification. The mitral valve leaflets are moderately calcified. There is trace mitral regurgitation. Aortic Valve: The aortic valve is trileaflet. The aortic valve is mildly calcified. There is moderate to severe aortic stenosis. The peak aortic velocity is 3.85 m/sec. The aortic valve mean gradient is 33.1 mmHg. The calculated aortic valve area is 0.7 cm2. There is trace aortic regurgitation. Tricuspid Valve: The tricuspid valve is normal in structure and function. There is trace tricuspid regurgitation. The right ventricular systolic pressure is estimated to be at least 39 mmHg based on an estimated right atrial pressure of 3 mm Hg. Pulmonic Valve: The pulmonic valve is not well seen, but is grossly normal. There is no pulmonic valvular regurgitation. Great Vessels: The aortic root is normal size. The dimensions of the ascending aorta are normal. The pulmonary artery is not well visualized, but is probably normal size. The IVC is of normal diameter and collapses greater than 50% with a sniff. This suggests a low right atrial pressure of 3 mm Hg. Pericardium/ Pleura There is no pericardial effusion. There is no pleural effusion. MMode/2D Measurements & Calculations LVIDd: 4.6 cm LVOT diam: 1.9 cm LVIDs: 2.9 cm Ao root diam: 2.8 cm FS: 37.0 % asc Aorta Diam: 3.2 cm EPSS: 0.68 cm IVSd: 1.2 cm LVPWd: 1.0 cm LV traore. diameter/BSA (cm/m^2): 2.5 LV sys. diameter/BSA (cm/m^2): 1.6 LA A2 area: 26.1 cm2 RA long axis: 4.8 cm LA A4 area: 29.3 cm2 RA area: 13.2 cm2 LA length (vol): 6.8 cm RA vol: 30.6 ml LA vol: 95.4 ml RA : 16.8 ml/m2 LA vol index: 52.2 ml/m2 IVC diam: 1.4 cm RVD1 (basal): 2.8 cm RVD2 (mid): 2.5 cm TAPSE: 1.7 cm Doppler Measurements & Calculations Ao V2 max: 384.9 cm/sec LVOT Max Manjit: 95.2 cm/sec Ao V2 mean: 267.8 cm/sec LV V1 max P.6 mmHg Ao max P.3 mmHg LV V1 VTI: 22.1 cm Ao mean P.1 mmHg JACK(I,D): 0.67 cm2 Ao V2 VTI: 92.5 cm JACK(V,D): 0.70 cm2 sev ratio: 0.24 JACK indexed to BSA (cm^2/m^2): 0.37 MV E max manjit: 117.0 cm/sec TR max manjit: 300.3 cm/sec MV A max manjit: 54.5 cm/sec TR max P.1 mmHg MV E/A: 2.1 PA V2 max: 97.0 cm/sec Med Peak E' Manjit: 4.8 cm/sec PA V2 mean: 66.6 cm/sec E/E' med: 24.2 PA mean P.0 mmHg Lat Peak E' Manjit: 6.2 cm/sec PA pr(Accel): 37.9 mmHg E/E' lat: 18.8 E/e' average: 21.5 MV dec time: 0.25 sec MVA(VTI): 1.6 cm2 MV V2 mean: 66.7 cm/sec SV(LVOT): 62.4 ml MV mean P.3 mmHg MV V2 VTI: 37.8 cm Reading Physician:04:57 PM
== END ==
PROVIDERS: Family Provider Nurse Practitioner Family; PCP Internal Medicine; Referring Provider Internal Medicine Cardiovascular Disease; Visit Provider Internal Medicine Cardiovascular Disease
DX: I08.0 Rheumatic disorders of both mitral and aortic valves (principal)
CPT/HCPCS: 93306